=== PATIENT | male | born 1955 | race Caucasian/White ===

== ENCOUNTER 2017-11-05 13:06 | Emergency (ER) | payer OTHER ==
[~2017-11-05] VITALS: Ht 185.4 cm; Wt 555.7 kg
[2017-11-05] MEDS ORDERED: ZANTAC150 M3 (13:41)
[2017-11-05] MEDS ORDERED: ATENOLOL25 MG (13:41)
[2017-11-05] MEDS ORDERED: SIMVASTATIN40 MG (13:41)
[2017-11-05] MEDS ORDERED: SYNTHROID125 MCG (13:41)
[2017-11-05] MEDS ORDERED: ASPIRIN81 MG (13:41)
== END 2017-11-05 17:17 | disposition home or self-care (01) ==
LOC: ER 13:06
DX: R04.0 Epistaxis (principal); J32.8 Other chronic sinusitis